=== PATIENT | female | born 1990 | race Caucasian/White ===

== ENCOUNTER 2018-05-03 14:05 | Emergency (ER) | payer SELFPAY ==
[~2018-05-03] VITALS: Ht 162.6 cm; Wt 108.9 kg
--- NOTE | 2018-05-03 14:13 | ED EENT ---
History of Present Illness General Chief Complaint: Sore throat Stated Complaint: SORE THROAT Source: patient Exam Limitations: no limitations History of Present Illness Date Seen by Provider: May 03, 2018 Time Seen by Provider: 14:14 Timing/Duration: gradual Severity: moderate Location: throat Prearrival Treatment: over the counter meds Associated Symptoms: No change in hearing, No drooling; fever; No poor fluid intake; poor solids intake, sore throat 28-year-old female with past medical history of dysmenorrhea presents with three -day history of gradually worsening sore throat. Today it is difficult for her to swallow food. She has been able to drink liquids. She denies any drooling. No headache, neck pain, or stiffness. She was seen yesterday at an urgent care had a rapid strep screen that was normal. She took a test 2 days ago that was negative, last menstrual period was 6 months ago, but she states that she has had long intervals between periods in the past. Allergies and Home Medications Patient Home Medication List Home Medication List Reviewed: Yes Review of Systems Review of Systems Constitutional: chills, fever (Subjective) Eyes: Denies Drainage, Denies Photophobia Ears: Denies Pain, Denies Tinnitus, Denies Clear Discharge, Denies Purulent Discharge Nose: denies congestion, denies pain, denies purulent discharge Mouth: see HPI; denies purulent discharge Throat: see HPI; denies neck stiffness, denies aphonia, denies muffled; painful swallowing; denies difficulty with fluids Respiratory: No cough, No short of breath Cardiovascular: No chest pain, No edema Gastrointestinal: No abdominal pain, No diarrhea, No nausea, No vomiting Neurological: Denies Headache, Denies Numbness, Denies Tingling, Denies Weakness Past Jbdeazp-Oaadnw-Qkymzb Hx Past Med/Social Hx: Reviewed Nursing Past Med/Soc Hx Patient Social History Recent Foreign Travel: No Contact w/Someone Who Travel: No Physical Exam Height, Weight, BMI Height: '" Weight: lbs. oz. kg; BMI Method: General Appearance: WD/WN, no apparent distress Eyes: bilateral eye normal inspection, bilateral eye PERRL, bilateral eye EOMI Ears: bilateral ear auricle normal, bilateral ear canal normal, bilateral ear TM normal Nose: normal inspection; No discharge Mouth/Throat: No excessive drooling; pharynx swelling (Posterior oropharynx erythema, no petechial hemorrhages); No tongue swollen, No tonsillar exudate, No tonsillar swelling, No trismus, No uvula swelling, No voice changes Neck: non-tender, full range of motion, supple, normal inspection Cardiovascular: normal peripheral pulses, regular rate, rhythm, no edema, no gallop, no JVD, no murmur Respiratory: chest non-tender, lungs clear, normal breath sounds, no respiratory distress, no accessory muscle use Gastrointestinal: normal bowel sounds, non tender, soft, no organomegaly, no pulsatile mass, tenderness, spleenomegaly Neurologic/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 Treat with 1.2 million pen G IM x1 and decadron 8 mg IM x1 with steroid burst as an outpatient. Departure Impression Primary Impression: Streptococcal sore throat Disposition: HOME, SELF-CARE Condition: Improved Departure-Patient Inst. Decision time for Depature: 14:26 Referrals: MELANIE BOURGEOIS MD (PCP/Family) Primary Care Physician Patient Instructions: Strep Throat (DC) Scripts Prednisone (Prednisone) 20 Mg Tab 40 MG PO DAILY for 5 Days, #10 TAB 0 Refills Prov: CARLY HOLMAN MD 05/03/18 CARLY HOLMAN MD May 03, 2018 14:13
[2018-05-03] MEDS ORDERED: PRD20T PO ×2 (14:29→14:31)
[2018-05-03] MEDS ORDERED: PEN G PROC/BENZATH 1.2 M UNITS (BICILLIN C-R) SYR IM ONE (14:30)
[2018-05-03] MEDS ORDERED: DEXAMETHASONE 4 MG/ML SDV (DECADRON) IM ONE (14:30)
[2018-05-03 14:53] VITALS: BP 129/79
--- OUTSIDE RECORDS SUMMARY | 2018-05-03 15:16 | XMS REPORT | Continuity of Care Document ---
Demographics Preferred Language Unknown Marital Status Unknown Christian Affiliation Unknown Race Unknown Ethnic Group Unknown Author Author [facility] Address Unknown Phone Unavailable Allergies Active Description Code Type Severity Reaction Onset Reported/Identified Relationship to Patient Clinical Status Yes Penicillins Drug Allergy 03/03/2012 Medications There is no data. Problems Date Dx Coded Attending Type Code Diagnosis Diagnosed By 03/03/2012 V70.5 NORMAL PRE- EMPLOYMENT SCREENING EXAMINATION 03/03/2012 V70.5 NORMAL PRE- EMPLOYMENT SCREENING EXAMINATION 03/17/2012 V72.41 TEST NEGATIVE RESULT Procedures Code [place] [address] URINE TEST (IN- HOUSE) 03/17/2012 Results There is no data. Encounters ACCT No. Visit Date/Time Discharge Status Pt. Type Provider Facility Loc./Unit Complaint [id number] 03/17/2012 10:48:00 03/17/2012 23:59:59 [facility] Outpatient [id number] 03/03/2012 14:06:00 03/03/2012 23:59:59 CLS Outpatient [id number] 05/02/2018 09:15:00 ACT Outpatient [facility] IN [facility]
== END 2018-05-03 15:01 | disposition home or self-care (01) ==
LOC: ER FS 14:07
DX: J02.0 Streptococcal pharyngitis (principal)
CPT/HCPCS: 99284

== ENCOUNTER 2018-05-05 07:33 | Emergency (ER) | payer SELFPAY ==
[~2018-05-05] VITALS: Ht 167.6 cm; Wt 108.9 kg
[~2018-05-05 07:33] MED LIST: PRD20T PO
--- OUTSIDE RECORDS SUMMARY | 2018-05-05 07:38 | XMS REPORT | Continuity of Care Document ---
Demographics Preferred Language Unknown Marital Status Unknown Druze Affiliation Unknown Race Unknown Ethnic Group Unknown Author Author [facility] Address Unknown Phone Unavailable Allergies Active Description Code Type Severity Reaction Onset Reported/Identified Relationship to Patient Clinical Status Yes Penicillins Drug Allergy 03/03/2012 Yes No Known Drug Allergies [id number] Drug Allergy Unknown N/A 05/03/2018 Medications There is no data. Problems Date Dx Coded Attending Type Code Diagnosis Diagnosed By 03/03/2012 V70.5 NORMAL PRE- EMPLOYMENT SCREENING EXAMINATION 03/03/2012 V70.5 NORMAL PRE- EMPLOYMENT SCREENING EXAMINATION 03/17/2012 V72.41 TEST NEGATIVE RESULT Procedures Code Description [place] [address] URINE TEST (IN- HOUSE) 03/17/2012 Results There is no data. Encounters ACCT No. Visit Date/Time Discharge Status Pt. Type Provider Facility Loc./Unit Complaint [id number] 03/17/2012 10:48:00 03/17/2012 23:59:59 CLS Outpatient [id number] 03/03/2012 14:06:00 03/03/2012 23:59:59 CLS Outpatient [id number] 05/03/2018 14:07:00 05/03/2018 15:01:00 DIS Emergency MANDA ROLAND, CARLY Reyes Via [facility] ER FS SORE THROAT [id number] 05/02/2018 09:15:00 [facility]
--- NOTE | 2018-05-05 08:29 | ED EENT ---
History of Present Illness General Chief Complaint: Oral/Throat Problems Stated Complaint: SORE THROAT Nursing Triage Note: Ambulatory to rm 2. Pt c/o sore throat and R ear pain. Pt reports being seen in ED on Wednesday and was given an AB shot and steroids. Pt c/o worsening symptoms. Pt reports IBU last taken at 06. Source: patient History of Present Illness Date Seen by Provider: May 05, 2018 Time Seen by Provider: 08:00 Initial Comments Patient is a 28-year-old female with persistent sore throat for the past 3 days. Patient was initially seen at an urgent care and then at this emergency department 2 days ago treated for presumptive strep pharyngitis given single dose of penicillin G and started on steroid burst pack. Complaints of persistent sore throat and right ear pain. No dysphagia, dysphonia or drooling. No pooling of secretions. No chest pain shortness of breath. No fever or chills or sweats. Patient's not been seen by a PCP or ENT since follow-up. Timing/Duration: gradual Location: throat Prearrival Treatment: no prearrival treatment, prescription meds Modifying Factors: Improves With Activity Associated Symptoms: ear drainage; No fever, No malaise, No nasal congestion/ drainage; sore throat Allergies and Home Medications Allergies Coded Allergies: No Known Drug Allergies (Unverified , 05/03/18) Home Medications Prednisone 20 Mg Tab, 40 MG PO DAILY Prescribed by: CARLY HOLMAN on 05/03/18 1431 Patient Home Medication List Home Medication List Reviewed: Yes Review of Systems Review of Systems Constitutional: no symptoms reported Eyes: No Symptoms Reported Ears: Pain Nose: no symptoms reported Mouth: pain, swelling Throat: pain Respiratory: no symptoms reported Cardiovascular: no symptoms reported Musculoskeletal: no symptoms reported Skin: no symptoms reported Neurological: No Symptoms Reported Hematologic/Lymphatic: No Symptoms Reported Past Medibim-Rmvfcr-Cgigrx Hx Patient Social History Alcohol Use: Denies Use Recreational Drug Use: No 2nd Hand Smoke Exposure: No Recent Foreign Travel: No Contact w/Someone Who Travel: No Recent Infectious Disease Expo: No Recent Hopitalizations: No Physical Abuse: No Sexual Abuse: No Seasonal Allergies Seasonal Allergies: No Past Medical History Surgeries: Yes Adenoidectomy Respiratory: No Cardiac: No Neurological: No Last Menstrual Period: May 03, 2018 Genitourinary: No Gastrointestinal: No Musculoskeletal: No Endocrine: No HEENT: No Cancer: No Psychosocial: No Integumentary: No Blood Disorders: No Physical Exam Vital Signs Vital Signs - First Documented 05/05/18 07:47 Temp 98.0 Pulse 80 Resp 16 B/P (MAP) 135/77 (96) Pulse Ox 97 O2 Delivery Room Air Height, Weight, BMI Height: 5'6.00" Weight: 240lbs. oz. 108.726418yp; BMI Method:Stated General Appearance: no apparent distress Eyes: bilateral eye normal inspection, bilateral eye PERRL, bilateral eye abnormal EOM Ears: right ear TM bulging; bilateral ear auricle normal, bilateral ear canal normal Nose: normal inspection Mouth/Throat: normal mouth inspection; No pharynx normal; pharynx swelling; No pharynx tenderness, No tongue swollen; tonsillar exudate, tonsillar swelling, uvula swelling, other Neck: non-tender, lymphadenopathy (R) Cardiovascular: normal peripheral pulses Respiratory: chest non-tender Gastrointestinal: normal bowel sounds Progress/Results/Core Measures Results/Orders Vital Signs/I&O 05/05/18 07:47 Temp 98.0 Pulse 80 Resp 16 B/P (MAP) 135/77 (96) Pulse Ox 97 O2 Delivery Room Air Blood Pressure Mean: 96 Progress Progress Note : Time: 08:29 Progress Note Peritonsillar abscess without airway compromise. Case discussed with local ENT provider who agrees to see patient in the office immediately after discharge from the emergency department. Departure Impression Primary Impression: Peritonsillar abscess Disposition: 01 HOME, SELF-CARE Condition: Stable Departure-Patient Inst. Referrals: MELANIE BOURGEOIS MD (PCP/Family) Primary Care Physician Patient Instructions: Laryngitis (DC), Peritonsillar Abscess, Adult (DC) Add. Discharge Instructions: Go immediately to Dr. Drew's office upon discharge from the ED for treatment of peritonsillar abscess. All discharge instructions reviewed with patient and/or family. Voiced understanding. WALTER ABDI DO May 05, 2018 08:29
--- NOTE | 2018-05-05 08:30 | NUR ---
Appt arranged with Dr. Drew. Pt to depart ED and go to Dr. Drew's office.
[2018-05-05 08:40] VITALS: BP 135/77
== END 2018-05-05 08:40 | disposition home or self-care (01) ==
LOC: EDUNIT# 07:33 → ER FS 07:35
DX: J36 Peritonsillar abscess (principal); Z79.52 Long term (current) use of systemic steroids; Z90.89 Acquired absence of other organs
CPT/HCPCS: 99282

== ENCOUNTER 2018-07-07 17:58 | Emergency (ER) | payer SELFPAY ==
[~2018-07-07] VITALS: Ht 160 cm; Wt 96.6 kg
--- OUTSIDE RECORDS SUMMARY | 2018-07-07 18:03 | XMS REPORT | Continuity of Care Document ---
Demographics Preferred Language Unknown Marital Status Unknown Jew Affiliation Unknown Race Unknown Ethnic Group Unknown Author Organization Unknown Address Unknown Allergies Active Description Code Type Severity Reaction Onset Reported/Identified Relationship to Patient Clinical Status Yes Penicillins Drug Allergy 03/03/2012 Yes No Known Drug Allergies [id number] Drug Allergy Unknown N/A 05/03/2018 Medications There is no data. Problems Date Dx Coded Attending Type Code Diagnosis Diagnosed By 03/03/2012 V70.5 NORMAL PRE- EMPLOYMENT SCREENING EXAMINATION 03/03/2012 V70.5 NORMAL PRE- EMPLOYMENT SCREENING EXAMINATION 03/17/2012 V72.41 TEST NEGATIVE RESULT 05/03/2018 MANDA ROLAND, CARLY Reyes Ot J02.0 STREPTOCOCCAL PHARYNGITIS 05/03/2018 CARLY HOLMAN MD Ot J02.9 ACUTE PHARYNGITIS, UNSPECIFIED 05/05/2018 CARLY HOLMAN MD Ot J02.0 STREPTOCOCCAL PHARYNGITIS 05/05/2018 CARLY HOLMAN MD Ot J02.9 ACUTE PHARYNGITIS, UNSPECIFIED 05/09/2018 WALTER ABDI DO, Ot J02.9 ACUTE PHARYNGITIS, UNSPECIFIED 05/09/2018 WALTER ABDI DO, Ot J36 PERITONSILLAR ABSCESS 05/09/2018 WALTER ABDI DO, Ot 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 Encounters ACCT No. Visit Date/Time Discharge Status Pt. Type Provider Facility Loc./Unit Complaint [id number] 03/17/2012 10:48:00 03/17/2012 23:59:59 CLS Outpatient [id number] 03/03/2012 14:06:00 03/03/2012 23:59:59 CLS Outpatient [id number] 05/05/2018 07:35:00 05/05/2018 08:40:00 DIS Outpatient WALTER ABDI DO [facility] ER FS SORE THROAT [id number] 05/03/2018 14:07:00 05/03/2018 15:01:00 DIS Emergency MANDA ROLAND, CARLY Reyes Via [facility] ER FS SORE THROAT [id number] 05/02/2018 09:15:00 05/02/2018 23:59:59 CLS Out[facility]
--- NOTE | 2018-07-07 18:40 | ED EENT ---
History of Present Illness General Chief Complaint: Eye Problems Stated Complaint: LT EYE RED AND PAINFUL Source: patient, RN notes reviewed Exam Limitations: no limitations History of Present Illness Date Seen by Provider: July 07, 2018 Time Seen by Provider: 18:39 Initial Comments Patient presents c/ c/o worsening left eye redness and pain x 2 days. (+) exposure to pink eye from her children. Used their eye drops and got worse. Went to and got the eye flushed out and told to use OTC eye wash and drops. Eye has continued to get worse. No known trauma, or injury. Watering and burning. No discharge, or mattering. Timing/Duration: gradual Location: eye (L) Prearrival Treatment: over the counter meds, prescription meds, flushing eyes Modifying Factors: Improves With Other (none) Associated Symptoms: other (none) Allergies and Home Medications Allergies Coded Allergies: No Known Drug Allergies (Unverified , 05/03/18) Home Medications Prednisone 20 Mg Tab, 40 MG PO DAILY Prescribed by: CARLY HOLMAN on 05/03/18 1431 Tobramycin/Dexamethasone 5 Ml Drops.susp, 1 DROP OP Q3HR Prescribed by: KARINA CISSE on 07/07/18 1850 Patient Home Medication List Home Medication List Reviewed: Yes Review of Systems Review of Systems Constitutional: see HPI Eyes: See HPI, Inflammation, Pain, Other (watering; burning) : No All Other Systems Reviewed Negative Unless Noted: Yes (Negative excepted noted.) Past Tnouuvs-Msecgn-Zeejja Hx Patient Social History 2nd Hand Smoke Exposure: No Recent Hopitalizations: No Seasonal Allergies Seasonal Allergies: No Past Medical History Surgeries: Yes Adenoidectomy Respiratory: No Cardiac: No Neurological: No Genitourinary: No Gastrointestinal: No Musculoskeletal: No Endocrine: No HEENT: No Cancer: No Psychosocial: No Integumentary: No Blood Disorders: No Physical Exam Vital Signs Vital Signs - First Documented 07/07/18 18:25 Temp 99.0 Pulse 89 Resp 16 B/P (MAP) 141/92 (108) O2 Delivery Room Air Height, Weight, BMI Height: 5'6.00" Weight: 240lbs. oz. 108.447343ij; BMI Method:Stated General Appearance: WD/WN, no apparent distress Eyes: left eye conjunctival inflammation, left eye lid inflammation; bilateral eye PERRL Respiratory: no respiratory distress Neurologic/Psychiatric: alert, normal mood/affect, oriented x 3 Skin: warm/dry; No rash Progress/Results/Core Measures Results/Orders Vital Signs/I&O 07/07/18 18:25 Temp 99.0 Pulse 89 Resp 16 B/P (MAP) 141/92 (108) O2 Delivery Room Air Departure Impression Primary Impression: Allergic conjunctivitis of left eye Disposition: HOME, SELF-CARE Condition: Stable Departure-Patient Inst. Decision time for Depature: 18:45 Referrals: MELANIE BOURGEOIS MD (PCP/Family) Primary Care Physician Patient Instructions: Conjunctivitis (Noninfectious Pinkeye) (DC) Add. Discharge Instructions: All discharge instructions reviewed with patient and/or family. Voiced understanding. RECOMMEND 400 mg OF IBUPROFEN EVERY 6 HOURS FOR EYE PAIN. MAY ALSO TAKE 1000 mg OF TYLENOL EVERY 6 HOURS IF NEEDED WELL. DO NOT EXCEED 4000 mg OF TYLENOL IN A 24 HOUR PERIOD. Scripts Tobramycin/Dexamethasone (Tobradex Eye Drops) 5 Ml Drops.susp 1 DROP OP Q3HR for 7 Days, #10 ML 0 Refills Prov: KARINA CISSE DO 07/07/18 KARINA CISSE DO July 07, 2018 18:40
[2018-07-07] MEDS ORDERED: TOBR5DRO2 OP (18:50)
[2018-07-07 19:05] VITALS: BP 140/86
== END 2018-07-07 19:11 | disposition home or self-care (01) ==
LOC: ER FS 17:58
DX: H10.12 Acute atopic conjunctivitis, left eye (principal); Z79.52 Long term (current) use of systemic steroids; Z90.89 Acquired absence of other organs
CPT/HCPCS: 99282

== ENCOUNTER → 2018-08-04 | Outpatient (CLI) | payer SELFPAY ==
[~2018-08-04] MED LIST changes: +TOBR5DRO2 OP
== END | disposition home or self-care (01) ==
LOC: PREOP 05:35
PROVIDERS: ATTEND Otolaryngology Otolaryngology/Facial Plastic Surgery
DX: Z01.818 Encounter for other preprocedural examination (principal)